=== PATIENT | female | born 1960 | race Caucasian/White ===

== ENCOUNTER 2017-04-15 14:35 | Emergency (ER) | payer OTHER ==
[~2017-04-15] VITALS: Ht 167.6 cm; Wt 77.0 kg
[~2017-04-15 14:35] MED LIST: ESTR.025T; LORA10TA7; MONT10TA2; [UNRECOGNIZED DRUG - CODE]
[2017-04-15 14:38] VITALS: BP 140/61; PULSE 92; RESP 16; TEMP 98.3; O2SAT 94
[2017-04-15] MEDS ORDERED: ESTR.025T TOPICAL (14:41)
[2017-04-15] MEDS ORDERED: PRAV80TA2 PO (14:41)
[2017-04-15] MEDS ORDERED: CYCLOBENZAPRINE HCL 10 MG TAB PO ONE (15:30)
[2017-04-15] MEDS ORDERED: IBUPROFEN 600 MG TAB PO ONE (15:30)
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
[2017-04-15] MEDS ORDERED: CYCL10TA PO (16:48)
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
== END 2017-04-15 16:55 | disposition home or self-care (01) ==
LOC: PHEFT 14:35 → MERGE 14:35 → PHEFT 16:55
DX: T14.8XXA Other injury of unspecified body region, initial encounter (principal); V49.49XA Driver injured in collision with other motor vehicles in traffic accident, initial encounter
CPT/HCPCS: 73000; 99283